=== PATIENT | male | born 1960 | race Hispanic/Latino ===

== ENCOUNTER 2016-08-02 14:28 | Emergency (ER) | payer OTHER ==
[2016-08-02 20:59] VITALS: BP 130/85
[2016-08-02] MEDS ORDERED: NORCO 5/325 PO ONE (20:59)
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
--- NOTE | 2016-08-02 21:26 | Cat Scan Report ---
FINAL REPORT PROCEDURE: CT HEAD/BRAIN WO CON TECHNIQUE: Computerized tomography of the head was performed without contrast material. HISTORY: Headache COMPARISON: No prior studies are available for comparison. FINDINGS: No CT evidence of intracranial mass, hemorrhage, acute territorial infarction, or hydrocephalus. The intracranial arteries are symmetric in density. Calvarium is intact. There is mild mucosal thickening of the left anterior ethmoid sinus. Mastoids are aerated. IMPRESSION: Minimal left ethmoid sinus mucosal thickening. No CT evidence of acute intracranial abnormality
[2016-08-02] MEDS ORDERED: TORADOL IM ONE (21:54)
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
== END 2016-08-03 00:40 | disposition home or self-care (01) ==
LOC: ED 14:28
DX: M25.522 Pain in left elbow (principal); M25.511 Pain in right shoulder; M54.6 Pain in thoracic spine; R51 Headache; Z88.0 Allergy status to penicillin; V19.9XXA Pedal cyclist (driver) (passenger) injured in unspecified traffic accident, initial encounter; Y93.55 Activity, bike riding; Y99.8 Other external cause status; Y92.488 Other paved roadways as the place of occurrence of the external cause
CPT/HCPCS: 70450; 71020; 73010; 73030; 73080; 93005; 93010; 96372; 99284; J1885